=== PATIENT | male | born 1960 | race Caucasian/White ===

== ENCOUNTER 2020-08-21 11:24 | Observation (INO) ==
[2020-08-21] MEDS ORDERED: NS 0.9% 1000 ml BAG 1,000 ML IV ONE (11:44)
[2020-08-21] MEDS ORDERED: hydrALAZINE 20 mg/ml 1 ML Vial IV IV SLOW PU ONE (11:45)
[2020-08-21 12:10] LABS: ABS Eosinophils 0.1 10^3/ul (0-0.6); ABS Lymphocytes 0.7 10^3/ul (1.0-4.8); ABS Monocytes 0.4 10^3/ul (0-0.8); ABS Neutrophils 4.8 10^3/ul (1.5-7.7); Eosinophil % 0.9 %; Hematocrit 47 % (42-52); Lymphocyte % 12.3 %; Mean Corpuscular HGB Conc 35 g/dL (31-36); Mean Corpuscular Hemoglobin 31 pg (27-31); Mean Corpuscular Volume 90 fL (80-94); Mean Platelet Volume 8.1 fL (7.4-10.4); Platelet Count 179 10^3/uL (150-450); Red Blood Count 5.16 10^6 /uL (4.18-5.48); Red Cell Distribution Width 13 % (10-15)
[2020-08-21] MEDS: NS 0.9% 1000 ml BAG 1,000 ML IV ONE ×3 (12:20→12:23)
[2020-08-21 12:29] LABS: ALT 32 U/L (7-52); AST 24 U/L (13-39); Albumin 4.5 g/dL (3.2-5.2); Albumin/Globulin Ratio 1.9 (1-3); Alkaline Phosphatase 61 U/L (34-104); Anion Gap 8 mmol/L (2-11); BUN/Creatinine Ratio 11.7 (8-20); Blood Urea Nitrogen 11 mg/dL (6-24); CO2 Carbon Dioxide 25 mmol/L (22-32); Calcium 9.4 mg/dL (8.6-10.3); Chloride 105 mmol/L (101-111); Cholesterol 201 mg/dL; EGFR African American 98.7 (>60); EGFR Non-African American 81.6 (>60); Globulin 2.4 g/dL (2-4); Glucose 100 mg/dL (70-100); HDL Cholesterol 41.9 mg/dL; LDL Cholesterol 142 mg/dL; Potassium 3.9 mmol/L (3.5-5.0); Sodium 138 mmol/L (135-145); Total Protein 6.9 g/dL (6.4-8.9); Triglycerides 88 mg/dL
[2020-08-21] MEDS ORDERED: Iohexol 350 (CONTRAST) 500 ML MDV IV ONE (12:40)
[2020-08-21 12:41] LABS: INR 0.99 (0.82-1.09)
[2020-08-21 12:43] LABS: Urine Appearance Clear; Urine Bilirubin Negative (Negative); Urine Blood Negative (Negative); Urine Color Straw; Urine Glucose Negative (Negative); Urine Ketones Trace (Negative); Urine Nitrite Negative (Negative); Urine Protein Negative (Negative); Urine Specific Gravity 1.008 (1.010-1.030); Urine Urobilinogen Negative (Negative)
[2020-08-21] MEDS ORDERED: Enoxaparin 40 MG/0.4 ML SYR SUBCUT SCH (14:00)
[2020-08-21 14:34] LABS: TSH Ultra Thyroid Stim Horm 1.29 mcIU/mL (0.34-5.60)
[2020-08-21 14:45] LABS: Folate > 20.00 ng/mL (>3.99)
[2020-08-21 14:46] LABS: Vitamin B12 252 pg/mL (180-914)
[2020-08-21] MEDS: hydrALAZINE 20 mg/ml 1 ML Vial IV IV SLOW PU PRN (17:30)
[2020-08-22] MEDS: hydrALAZINE 20 mg/ml 1 ML Vial IV IV SLOW PU PRN (03:07)
[2020-08-22 06:42] LABS: HDL Cholesterol 45.4 mg/dL
[2020-08-22 08:07] VITALS: BP 152/85
== END 2020-08-22 10:58 | disposition home or self-care (01) ==
LOC: MEDTELE 11:24 → ED 11:24 → MEDTELE 18:37
PROVIDERS: ADMIT Internal Medicine; ATTEND Internal Medicine